=== PATIENT | male | born 1950 | race Caucasian/White ===

== ENCOUNTER 2018-01-15 12:31 | Emergency (ER) | payer BC ==
[2018-01-15] MEDS ORDERED: NA CHLORIDE 0.9% 1,000 ML ONE (13:18)
[2018-01-15 13:28] LABS: Potassium 3.5 mEq/L (3.6-5.0)
[2018-01-15 13:31] LABS: Magnesium 1.8 mg/dL (1.8-2.5)
[2018-01-15 13:38] LABS: CKMB Creatine Kinase MB 9.7 ng/ml (0.3-4.0)
--- NOTE | 2018-01-15 13:38 | RAD REPORT ---
EXAM DESCRIPTION: RAD - Chest Single View - 01/15/2018 1:31 pm CLINICAL HISTORY: Chest pain. COMPARISON: 07/04/2014 FINDINGS: Portable technique limits examination quality. The lungs are grossly clear. The heart is normal in size. Old left posterior rib fractures noted. IMPRESSION: No acute intrathoracic process suspected.
[2018-01-15 13:43] LABS: Absolute Monocytes 0.6 K/uL (0.1-1.3); Absolute Neutrophil 5.3 K/uL (1.8-8.0); Basophils % 0.8 % (0-1.3); Eosinophils % 2.3 % (0-4.4); Hematocrit 41.2 % (39.6-49.0); Lymphocytes % 13.9 % (15.3-44.8); MCH 32.4 pg (27.0-35.0); MCV 93.7 fL (80-100); MPV 8.7 fL (7.6-11.3); Monocytes % 8.8 % (3.3-12.3)
--- NOTE | 2018-01-15 14:09 | RAD REPORT ---
EXAM DESCRIPTION: CT - Head Brain Wo Cont - 01/15/2018 1:50 pm CLINICAL HISTORY: TIA/CVA COMPARISON: None. TECHNIQUE: All CT scans are performed using dose optimization technique as appropriate and may inclu de automated exposure control or mA/KV adjustment according to patient size. FINDINGS: No intracranial hemorrhage, hydrocephalus or extra-axial fluid collection.No areas of brai n edema or evidence of midline shift. The paranasal sinuses and mastoids are clear. The calvarium is intact. IMPRESSION: No acute intracranial abnormality.
[2018-01-15] MEDS ORDERED: POTASSIUM CL SA 10 MEQ TAB PO ONE (15:05)
[2018-01-15] MEDS ORDERED: POTASSIUM 25 MEQ EFFERV TAB ONE (15:06)
--- NOTE | 2018-01-15 17:22 | EDPHYS ---
Physician Documentation [facility] Name: Reinaldo Pickett Age: 67 yrs Sex: Male : 1950 Arrival Date: 01/15/2018 Time: 12:33 Bed 2 Private MD: ED Physician Sonu Dutta HPI: 01/15 12:51 This 67 yrs old Male presents to ER via Ambulatory with complaints of rn Dizziness, chest pain. 12:51 The patient presents with dizziness, feeling faint, generalized weakness. Onset: The rn symptoms/episode began/occurred 2 hour(s) ago. Modifying factors: The symptoms are alleviated by holding head still, lying down, the symptoms are aggravated by changing position. Severity of symptoms: At their worst the symptoms were moderate in the emergency department the symptoms have improved. The patient has not experienced similar symptoms in the past. 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 . Historical: - Allergies: 12:39 No Known Allergies; hb - Home Meds: 12:39 None [Active]; hb - PMHx: 12:39 None; hb - PSHx: 12:39 Cholecystectomy; right knee sx; hb - Immunization history:: Adult Immunizations up to date. - Social history:: Smoking status: Patient/guardian denies using tobacco. - Family history:: not pertinent. - Hospitalizations: : No recent hospitalization is reported. ROS: 12:51 Constitutional: Negative for fever, chills, and weight loss, Eyes: Negative for injury, rn pain, redness, and discharge, Neck: Negative for injury, pain, and swelling, Cardiovascular: Negative for palpitations, and edema, Respiratory: Negative for shortness of breath, cough, wheezing, and pleuritic chest pain, Abdomen/GI: Negative for abdominal pain, nausea, vomiting, diarrhea, and constipation, MS/Extremity: Negative for injury and deformity, Skin: Negative for injury, rash, and discoloration, Neuro: Negative for numbness, tingling, and seizure. Exam: 12:51 Constitutional: This is a well developed, well nourished patient who is awake, alert, rn and in no acute distress. Head/Face: Normocephalic, atraumatic. Eyes: Pupils equal round and reactive to light, extra-ocular motions intact. Lids and lashes normal. Conjunctiva and sclera are non-icteric and not injected. Cornea within normal limits. Periorbital areas with no swelling, redness, or edema. Neck: Trachea midline, no thyromegaly or masses palpated, and no cervical lymphadenopathy. Supple, full range of motion without nuchal rigidity, or vertebral point tenderness. No Meningismus. Cardiovascular: tachycardic, regular, no murmur Respiratory: Lungs have equal breath sounds bilaterally, clear to auscultation and percussion. No rales, rhonchi or wheezes noted. No increased work of breathing, no retractions or nasal flaring. Abdomen/GI: Soft, non-tender, with normal bowel sounds. No distension or tympany. No guarding or rebound. No evidence of tenderness throughout. Skin: Warm, dry with normal turgor. Normal color with no rashes, no lesions, and no evidence of cellulitis. MS/ Extremity: Pulses equal, no cyanosis. Neurovascular intact. Full, normal range of motion. Equal circumference. Neuro: Awake and alert, GCS 15, oriented to person, place, time, and situation. Cranial nerves II-XII grossly intact. Motor strength 5/5 in all extremities. Sensory grossly intact. Cerebellar exam normal. Vital Signs: 12:39 BP 150 / 105; Pulse 114; Resp 20; Temp 97.2; Pulse Ox 97% on R/A; Pain 0/10; hb 15:00 BP 137 / 91; Pulse 97; Resp 16; Pulse Ox 100% ; ph 16:06 BP 142 / 87; Pulse 69; Resp 16; Pulse Ox 99% on R/A; ph 17:00 BP 139 / 78; Pulse 64; Resp 18; Temp 97.8; Pulse Ox 99% on R/A; ph MDM: 12:43 Patient medically screened. rn 17:19 Differential diagnosis: cardiac arrhythmia, hypovolemia, idiopathic dizziness, rn near-syncope, vertigo. Data reviewed: vital signs, nurses notes, lab test result(s), EKG, radiologic studies, CT scan, and as a result, I will discharge patient. Counseling: I had a detailed discussion with the patient and/or guardian regarding: the historical points, exam findings, and any diagnostic results supporting the discharge/admit diagnosis, lab results, radiology results, the need for outpatient follow up, to return to the emergency department if symptoms worsen or persist or if there are any questions or concerns that arise at home. Response to treatment: the patient's symptoms have resolved after treatment, the patient's condition has returned to base line, the patient is now symptom free, patient is well hydrated. and as a result, I will discharge patient. Special discussion: I discussed with the patient/guardian in detail that at this point there is no indication for admission to the hospital. It is understood, however, that if the symptoms persist or worsen the patient needs to return immediately for re-evaluation. ED course: Pt with elevated CKMB, normal troponin, no ischemia on ECG, offered observation, patient chose repeat cardiac markers, which have decreased and trop still negative, normal vitals, symptoms resolved, ambulating without dizziness, will dc home. Most likely over did it and overhead work, mild dehydration, states was "partying" the night before and hasn't really taken much water today. . 01/15 12:50 Order name: Basic Metabolic Panel; Complete Time: 13: rn 01/15 12:50 Order name: BNP; Complete Time: :01/15 12:50 Order name: CBC with Diff; Complete Time: :01/15 12:50 Order name: Ckmb; Complete Time: 13:01/15 12:50 Order name: CPK; Complete Time: 13:01/15 12:50 Order name: Magnesium; Complete Time: 13:01/15 12:50 Order name: CT Head Brain wo Cont; Complete Time: 14:19 rn 01/15 12:50 Order name: Troponin (emerg Dept Use Only); Complete Time: 13:01/15 12:50 Order name: XRAY Chest (1 view); Complete Time: :01/15 15:47 Order name: Troponin (emerg Dept Use Only); Complete Time: 17:18 01/15 15:47 Order name: Ckmb; Complete Time: 17:01/15 15:58 Order name: CK; Complete Time: 17:18 rn 01/15 12:50 Order name: EKG; Complete Time: 12:51 rn 01/15 12:50 Order name: Cardiac monitoring; Complete Time: 12:52 rn 01/15 12:50 Order name: EKG - Nurse/Tech; Complete Time: 12:52 rn 01/15 12:50 Order name: IV Saline Lock; Complete Time: 12:52 rn 01/15 12:50 Order name: Labs collected and sent; Complete Time: 13:09 rn 01/15 12:50 Order name: NPO; Complete Time: 12:52 rn 01/15 12:50 Order name: O2 Per Protocol; Complete Time: 12:52 rn 01/15 12:50 Order name: O2 Sat Monitoring; Complete Time: 12:52 rn Administered Medications: 04:55 Drug: Potassium Chloride 40 mEq Route: PO; ph 13:13 Drug: NS 0.9% 1000 ml Route: IV; Rate: 1000 ml; Site: left forearm; ph Disposition: 01/15/18 17:21 Discharged to Home. Impression: Dizziness and giddiness, Dehydration. - Condition is Stable. - Discharge Instructions: Dehydration, Adult, Dizziness, Hypokalemia. - Medication Reconciliation Form, Thank You Letter, Antibiotic Education, Prescription Opioid Use form. - Follow up: Private Physician; When: As needed; Reason: Recheck today's complaints, Re-evaluation by your physician. - Problem is new. - Symptoms have improved. Signatures: Dispatcher [employer] EDSonu Ramos MD MD rn Hall, Patricia, RN RN ph Baxter, Heather, RN RN
--- NOTE | 2018-01-15 17:22 | ER ---
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 Transition of care: patient was not received from another setting of care. Onset of symptoms was January 15, 2018 at 10:00. Care prior to arrival: None. 12:35 Method Of Arrival: Ambulatory 12:35 Acuity: ADRIENNE 3 hb Historical: - Allergies: 12:39 No Known Allergies; hb - Home Meds: 12:39 None [Active]; hb - PMHx: 12:39 None; hb - PSHx: 12:39 Cholecystectomy; right knee sx; hb - Immunization history:: Adult Immunizations up to date. - Social history:: Smoking status: Patient/guardian denies using tobacco. - Family history:: not pertinent. - Hospitalizations: : No recent hospitalization is reported. Screenin:54 Abuse screen: Denies threats or abuse. Denies injuries from another. Nutritional ph screening: No deficits noted. Tuberculosis screening: No symptoms or risk factors identified. Fall Risk None identified. Assessment: 13:10 General: Appears in no apparent distress. comfortable, Behavior is calm, cooperative, ph appropriate for age, Denies fever, feeling ill. Pain: Complains of pain in right arm Pain radiates to right hand Quality of pain is described as crampy, tingling. Neuro: Level of Consciousness is awake, alert, obeys commands, Oriented to person, place, time, situation. Cardiovascular: Reports fatigue, lightheadedness, Denies chest pain, shortness of breath, syncope, Capillary refill < 3 seconds Patient's skin is warm and dry. Respiratory: Airway is patent Respiratory effort is even, unlabored. GI: No signs and/or symptoms were reported involving the gastrointestinal system. Derm: Skin is intact, Skin is pink, warm \\T\\ dry. Musculoskeletal: Circulation, motion, and sensation intact. Range of motion: intact in all extremities. 14:30 Reassessment: Patient appears in no apparent distress at this time. Patient and/or ph family updated on plan of care and expected duration. Pain level reassessed. Patient is alert, oriented x 3, equal unlabored respirations, skin warm/dry/pink. at bedside, awaiting CT and lab results. 16:06 Reassessment: Patient appears in no apparent distress at this time. Patient and/or ph family updated on plan of care and expected duration. Pain level reassessed. Patient is alert, oriented x 3, equal unlabored respirations, skin warm/dry/pink. Pt resting quietly, awaiting results of repeat cardiac enzymes Patient denies pain at this time. Patient states symptoms have improved. 17:25 Reassessment: Patient appears in no apparent distress at this time. No changes from ph previously documented assessment. Patient and/or family updated on plan of care and expected duration. Pain level reassessed. Patient is alert, oriented x 3, equal unlabored respirations, skin warm/dry/pink. Patient denies pain at this time. Patient states feeling better. Vital Signs: 12:39 BP 150 / 105; Pulse 114; Resp 20; Temp 97.2; Pulse Ox 97% on R/A; Pain 0/10; hb 15:00 BP 137 / 91; Pulse 97; Resp 16; Pulse Ox 100% ; ph 16:06 BP 142 / 87; Pulse 69; Resp 16; Pulse Ox 99% on R/A; ph 17:00 BP 139 / 78; Pulse 64; Resp 18; Temp 97.8; Pulse Ox 99% on R/A; ph ED Course: 12:33 Patient arrived in ED. as 12:39 Triage completed. hb 12:39 Arm band placed on left wrist. hb 12:43 Sonu Dutta MD is Attending Physician. rn 12:54 Patient has correct armband on for positive identification. Placed in gown. Bed in low ph position. Call light in reach. Side rails up X 1. tax services intern on. Pulse ox on. NIBP on. Warm blanket given. 13:00 Initial lab(s) drawn, by me, sent to lab. Inserted saline lock: 20 gauge in left ph forearm, using aseptic technique. Blood collected. 13:09 Jaylin Rubio, RN is Primary Nurse. ph 13:12 X-ray completed. Portable x-ray completed in exam room. Patient tolerated procedure kp1 well. 13:31 XRAY Chest (1 view) In Process Unspecified. EDMS 13:50 CT Head Brain wo Cont In Process Unspecified. EDMS 16:05 No provider procedures requiring assistance completed. ph 17:47 IV discontinued, intact, bleeding controlled, No redness/swelling at site. Pressure ph dressing applied. Administered Medications: 04:55 Drug: Potassium Chloride 40 mEq Route: PO; ph 13:13 Drug: NS 0.9% 1000 ml Route: IV; Rate: 1000 ml; Site: left forearm; ph Outcome: 17:21 Discharge ordered by MD. rn 17:47 Patient left the ED. ph 17:47 Discharged to home ambulatory. ph 17:47 Condition: good 17:47 Discharge instructions given to patient, Instructed on discharge instructions, follow up and referral plans. Demonstrated understanding of instructions, follow-up care. Signatures: Dispatcher [employer] Kasandra Daly Roman, MD MD rn Hall, Patricia, RN RN ph Baxter, Heather, RN RN Therese Cespedes kp1 Corrections: (The following items were deleted from the chart) 12:39 12:35 Onset of symptoms was January 15, 2018 at 11:00 hb
--- NOTE | 2018-01-16 10:24 | EKG ---
Test Date: 2018-01-15 Test Time: 12:48:56 Director Of Student Financial Services: MEASUREMENT RESULTS: Intervals: Rate: 94 DE: 212 QRSD: 80 QT: 352 QTc: 440 [place]: P: 56 DE: 212 QRS: 35 T: 52 INTERPRETIVE STATEMENTS: Sinus rhythm with 1st degree AV block Otherwise normal ECG Compared to ECG 07/04/2014 08:12:18 Myocardial infarct finding no longer present Electronically Signed On 01-16-18 10:23:26 CDT by Moshe Shelley
== END 2018-01-15 17:47 | disposition home or self-care (01) ==
LOC: ER 12:31
DX: E86.0 Dehydration (principal)
CPT/HCPCS: 36415; 70450; 71045; 80048; 82550; 82553; 83735; 83880; 84484; 85025; 93005; 99284; J7030

== ENCOUNTER 2018-03-26 10:45 | Emergency (ER) | payer BC ==
[2018-03-26] MEDS ORDERED: KETOROLAC 30 MG/ML INJ ONE (11:41)
[2018-03-26 11:58] LABS: Urine Bacteria <20 /HPF (NONE SEEN); Urine Culture Reflex Order REFLEXED; Urine Triple Phosphate Crystal FEW (NONE SEEN)
[2018-03-26 11:59] LABS: Urine Blood 1+ (NEG); Urine Glucose NEGATIVE (NEG); Urine Protein 1+ (NEG); Urine Specific Gravity 1.025 (1.005-1.030); Urine pH 6.5 (5.0-7.0)
[2018-03-26 12:17] LABS: Absolute Monocytes 0.7 K/uL (0.1-1.3); Basophils % 0.3 % (0-1.3); Hematocrit 41.8 % (39.6-49.0); Lymphocytes % 9.1 % (15.3-44.8); MCH 32.6 pg (27.0-35.0); MCV 92.6 fL (80-100); MPV 8.5 fL (7.6-11.3); Monocytes % 6.3 % (3.3-12.3); RBC Red Blood Cell Count 4.52 M/uL (4.33-5.43)
--- NOTE | 2018-03-26 12:17 | RAD REPORT ---
EXAM DESCRIPTION: CT - Stone Protocol - 03/26/2018 11:42 am CLINICAL HISTORY: Abdominal pain. Lower abdominal pain. Urinary frequency Abdominal pain. Left flank pain since with a COMPARISON: None. TECHNIQUE: Computed axial tomography of the abdomen pelvis was obtained without oral or IV contrast. Lack of IV and oral contrast limits evaluation of solid organs, bowel, and vessels. Coronal reformat carissa images were obtained and reviewed. All CT scans are performed using dose optimization technique as appropriate and may include automated exposure control or mA/KV adjustment according to patient size. Bilateral renal calculi are present. The calculi measure from 2-4 millimeters. Parapelvic renal cysts are present. Mild left hydronephrosis with perirenal stranding is present. A 5 millimeter calculus H [place] unit 1163 is present within the proximal left ureter. . The liver, spleen, pancreas and adrenals appear grossly normal There is no evidence of diverticulitis. The appendix appears normal. A small umbilical hernia is present. The gallbladder has been removed FINDINGS: Bilateral renal calculi are present. The calculi measure from 2-4 millimeters. Parapelvic renal cysts are present. Mild left hydronephrosis with perirenal stranding is present. A 5 millimeter calculus [place] unit 1163 is present within the proximal left ureter. . The liver, spleen, pancreas and adrenals appear grossly normal There is no evidence of diverticulitis. The appendix appears normal. A small umbilical hernia is present. The gallbladder has been removed IMPRESSION: 5 millimeter left ureteral calculus resulting in mild left hydronephrosis
[2018-03-26 12:25] LABS: Potassium 3.9 mEq/L (3.6-5.0)
[2018-03-26 12:31] LABS: Albumin 4.3 g/dL (3.2-5.5); Bilirubin Direct 0.1 mg/dL (0-0.2); Bilirubin Total 0.7 mg/dL (0.3-1.2); Protein, Total 7.2 g/dL (6.0-8.3)
--- NOTE | 2018-03-26 12:40 | EDPHYS ---
Physician Documentation [facility] Name: Reinaldo Pickett Age: 67 yrs Sex: Male : 1950 Arrival Date: 03/26/2018 Time: 10:48 Bed 8 Private MD: None, None ED Physician Otto Loyola HPI: 03/26 13:34 This 67 yrs old Male presents to ER via Ambulatory with complaints of gs Possible Kidney Stone. 13:34 The patient complains of pain in the left low back and left mid back. The pain gs radiates. Onset: The symptoms/episode began/occurred acutely, this morning. Modifying factors: The symptoms are alleviated by nothing. the symptoms are aggravated by nothing. Associated signs and symptoms: Pertinent positives: nausea. Severity of pain: At its worst the pain was moderate in the emergency department the pain is unchanged. The patient has experienced similar episodes in the past, a few times, today's symptoms are similar. The patient has not recently seen a physician. Historical: - Allergies: 11:10 No Known Allergies; sv - Home Meds: 11:10 None [Active]; sv - PMHx: 11:10 Kidney stones; sv - PSHx: 11:10 Cholecystectomy; right knee sx; sv - Immunization history:: Adult Immunizations up to date. - Social history:: Smoking status: Patient/guardian denies using tobacco. - Ebola Screening: : No symptoms or risks identified at this time. ROS: 13:34 All other systems are negative. gs Exam: 13:34 Head/Face: Normocephalic, atraumatic. Eyes: Pupils equal round and reactive to light, gs extra-ocular motions intact. Lids and lashes normal. Conjunctiva and sclera are non-icteric and not injected. Cornea within normal limits. Periorbital areas with no swelling, redness, or edema. ENT: Nares patent. No nasal discharge, no septal abnormalities noted. Tympanic membranes are normal and external auditory canals are clear. Oropharynx with no redness, swelling, or masses, exudates, or evidence of obstruction, uvula midline. Mucous membranes moist. Neck: Trachea midline, no thyromegaly or masses palpated, and no cervical lymphadenopathy. Supple, full range of motion without nuchal rigidity, or vertebral point tenderness. No Meningismus. Chest/axilla: Normal chest wall appearance and motion. Nontender with no deformity. No lesions are appreciated. Cardiovascular: Regular rate and rhythm with a normal S1 and S2. No gallops, murmurs, or rubs. Normal PMI, no JVD. No pulse deficits. Respiratory: Lungs have equal breath sounds bilaterally, clear to auscultation and percussion. No rales, rhonchi or wheezes noted. No increased work of breathing, no retractions or nasal flaring. Abdomen/GI: Soft, non-tender, with normal bowel sounds. No distension or tympany. No guarding or rebound. No evidence of tenderness throughout. Male : Normal genitalia with no discharge or lesions. Skin: Warm, dry with normal turgor. Normal color with no rashes, no lesions, and no evidence of cellulitis. MS/ Extremity: Pulses equal, no cyanosis. Neurovascular intact. Full, normal range of motion. Neuro: Awake and alert, GCS 15, oriented to person, place, time, and situation. Cranial nerves II-XII grossly intact. Motor strength 5/5 in all extremities. Sensory grossly intact. Cerebellar exam normal. Normal gait. 13:34 Constitutional: The patient appears alert, awake. 13:34 Back: CVA tenderness, that is moderate, is noted on the left. Vital Signs: 11:10 BP 136 / 88; Pulse 75; Resp 20; Pulse Ox 99% on R/A; Weight 102.06 kg; Height 6 ft. 1 sv in. (185.42 cm); Pain 10/10; 13:00 BP 128 / 77; Pulse 76; Resp 18; Pulse Ox 100% on R/A; Pain 3/10; sg 11:10 Body Mass Index 29.68 (102.06 kg, 185.42 cm) sv MDM: 11:25 Patient medically screened. gs 13:34 Differential diagnosis: nephrolithiasis, pyelonephritis, UTI. Data reviewed: vital gs signs, nurses notes. Response to treatment: the patient's symptoms have markedly improved after treatment, and as a result, I will discharge patient. 03/26 11:25 Order name: Urine Dipstick--Ancillary (enter results); Complete Time: 12:37 em1 03/26 11:27 Order name: Urine Microscopic Only; Complete Time: 12:37 gs 03/26 11:27 Order name: Basic Metabolic Panel; Complete Time: 12:37 03/26 11:27 Order name: CBC with Diff; Complete Time: 12:37 03/26 11:27 Order name: Hepatic Function; Complete Time: 12: 03/26 11:27 Order name: Lipase; Complete Time: 12: 03/26 11:25 Order name: Urine Dipstick-Ancillary (obtain specimen); Complete Time: 11:25 1 03/26 11:27 Order name: IV Saline Lock; Complete Time: 12: 03/26 11:27 Order name: Labs collected and sent; Complete Time: 12: 03/26 11:27 Order name: CT Stone Protocol; Complete Time: 12: 03/26 12:00 Order name: Urine Culture EDMS Administered Medications: 12:01 Drug: TORadol 15 mg Route: IVP; Site: left antecubital; sg 13:00 Follow up: Response: No adverse reaction; Pain is decreased sg Disposition: 03/26/18 12:39 Discharged to Home. Impression: Hydronephrosis with renal and ureteral calculous obstruction. - Condition is Stable. - Discharge Instructions: Hydronephrosis. - Prescriptions for Tylenol- Codeine #4 300-60 mg Oral Tablet - take 1 tablet by ORAL route every 6 hours As needed; 12 tablet. - Medication Reconciliation Form, Thank You Letter, Antibiotic Education, Prescription Opioid Use form. - Follow up: Randi Casarez MD; When: 2 - 3 days; Reason: Re-evaluation by your physician. Signatures: Dispatcher [employer] EDDC Seda Odom RN RN Ron Cedillo RN RN Marques Rasheed [facility] Otto Loyola MD MD Corrections: (The following items were deleted from the chart) 13:11 12:39 03/26/2018 12:39 Discharged to Home. Impression: Hydronephrosis with renal and sg ureteral calculous obstruction. Condition is Stable. Forms are Medication Reconciliation Form, Thank You Letter, Antibiotic Education, Prescription Opioid Use. Follow up: Randi Casarez; When: 2 - 3 days; Reason: Re-evaluation by your physician.
--- NOTE | 2018-03-26 12:40 | ER ---
Nurse's Notes [facility] Name: Reinaldo Pickett Age: 67 yrs Sex: Male : 1950 Arrival Date: 03/26/2018 Time: 10:48 Bed 8 Private MD: None, None Diagnosis: Hydronephrosis with renal and ureteral calculous obstruction Presentation: 03/26 11:09 Presenting complaint: Patient states: left flank pain started , has hx of sv kidkey stones. Transition of care: patient was not received from another setting of care. Onset of symptoms was March 24, 2018. Care prior to arrival: None. 11:09 Method Of Arrival: Ambulatory sv 11:09 Acuity: ADRIENNE 3 sv 12:15 Risk Assessment: Do you want to hurt yourself or someone else? Patient reports no sg desire to harm self or others. Initial Sepsis Screen: Does the patient meet any 2 criteria? No. Patient's initial sepsis screen is negative. Does the patient have a suspected source of infection? No. Patient's initial sepsis screen is negative. Historical: - Allergies: 11:10 No Known Allergies; sv - Home Meds: 11:10 None [Active]; sv - PMHx: 11:10 Kidney stones; sv - PSHx: 11:10 Cholecystectomy; right knee sx; sv - Immunization history:: Adult Immunizations up to date. - Social history:: Smoking status: Patient/guardian denies using tobacco. - Ebola Screening: : No symptoms or risks identified at this time. Screenin:00 Abuse screen: Denies threats or abuse. Denies injuries from another. Nutritional sg screening: No deficits noted. Tuberculosis screening: No symptoms or risk factors identified. Never had TB. Fall Risk None identified. Assessment: 11:45 General: Appears in no apparent distress. comfortable, well groomed, well developed, sg well nourished, Behavior is calm, cooperative, appropriate for age. Pain: Complains of pain in left mid back and left low back Pain does not radiate. Neuro: No deficits noted. Cardiovascular: Heart tones S1 S2 present Capillary refill is brisk in bilateral fingers Patient's skin is warm and dry. Chest pain is denied. Respiratory: Airway is patent Respiratory effort is even, unlabored, Respiratory pattern is regular, symmetrical. GI: Bowel sounds present X 4 quads. Abd is soft and non tender X 4 quads. : No signs and/or symptoms were reported regarding the genitourinary system. EENT: No signs and/or symptoms were reported regarding the EENT system. Derm: Skin is pink, warm \T\ dry. Musculoskeletal: No signs and/or symptoms reported regarding the musculoskeletal system. 12:10 Reassessment: Patient appears in no apparent distress at this time. Patient and/or sg family updated on plan of care and expected duration. Pain level reassessed. Patient is alert, oriented x 3, equal unlabored respirations, skin warm/dry/pink. Patient states feeling better. Vital Signs: 11:10 BP 136 / 88; Pulse 75; Resp 20; Pulse Ox 99% on R/A; Weight 102.06 kg; Height 6 ft. 1 sv in. (185.42 cm); Pain 10/10; 13:00 BP 128 / 77; Pulse 76; Resp 18; Pulse Ox 100% on R/A; Pain 3/10; sg 11:10 Body Mass Index 29.68 (102.06 kg, 185.42 cm) sv ED Course: 10:48 Patient arrived in ED. sb2 10:49 None, None is Private Physician. sb2 11:10 Triage completed. sv 11:11 Arm band placed on right wrist. sv 11:16 Otto Loyola MD is Attending Physician. gs 11:19 Ron Cedillo, NIKOLAY is Primary Nurse. sg 11:[address] sw 11:43 CT Stone Protocol In Process Unspecified. EDMS 11:55 Initial lab(s) drawn, by me, sent to lab. Inserted saline lock: 20 gauge in left dh3 antecubital area, using aseptic technique. Blood collected. 12:38 Randi Casarez MD is Referral Physician. gs 13:00 Patient has correct armband on for positive identification. Bed in low position. Call sg light in reach. Side rails up X2. surveillance system monitor on. Pulse ox on. NIBP on. Warm blanket given. Head of bed elevated. 13:00 No provider procedures requiring assistance completed. IV discontinued, intact, sg bleeding controlled, No redness/swelling at site. Pressure dressing applied. Administered Medications: 12:01 Drug: TORadol 15 mg Route: IVP; Site: left antecubital; sg 13:00 Follow up: Response: No adverse reaction; Pain is decreased Outcome: 12:39 Discharge ordered by . 13:00 Discharged to home ambulatory, with family. 13:00 Condition: good 13:00 Discharge instructions given to patient, Instructed on discharge instructions, follow up and referral plans. medication usage, safety practices, Demonstrated understanding of instructions, follow-up care, medications, Prescriptions given X 2 prescriptions were written on one prescription paper, (Keflex) along w/tylenol 13:11 Patient left the ED. sg Signatures: Dispatcher [employer] EDSeda Allred RN RN sv Gay, Steven, RN RN sg Warren, Shannon sw Herrera, Kym 3 Otto Loyola MD MD gs Billeau, Sheri sb2
== END 2018-03-26 13:11 | disposition home or self-care (01) ==
LOC: ER 10:45
DX: N13.2 Hydronephrosis with renal and ureteral calculous obstruction (principal); Z87.442 Personal history of urinary calculi
CPT/HCPCS: 36415; 74176; 76377; 80048; 80076; 81003; 81015; 83690; 85025; 87086; 87088; 96374; 99285

== ENCOUNTER 2018-03-29 10:20 | Day surgery (SDC) | payer BC ==
[2018-03-29 10:05] LABS: Absolute Lymphocytes (CBC) 1.2 K/uL (0.7-4.9); Absolute Monocytes 0.8 K/uL (0.1-1.3); Absolute Neutrophil 5.3 K/uL (1.8-8.0); Basophils % 0.3 % (0-1.3); Eosinophils % 4.2 % (0-4.4); Hematocrit 39.4 % (39.6-49.0); Lymphocytes % 16.2 % (15.3-44.8); MCH 33.3 pg (27.0-35.0); MCV 91.2 fL (80-100); MPV 8.5 fL (7.6-11.3); RBC Red Blood Cell Count 4.32 M/uL (4.33-5.43)
[2018-03-29 10:08] LABS: Urine Appearance CLEAR; Urine Bilirubin NEGATIVE (NEG); Urine Blood NEGATIVE (NEG); Urine Color YELLOW; Urine Glucose NEGATIVE (NEG); Urine Protein TRACE (NEG); Urine Specific Gravity 1.025 (1.005-1.030); Urine pH 5.5 (5.0-7.0)
[2018-03-29 10:09] LABS: Protime INR 1.08
[2018-03-29 10:12] LABS: Urine Microscopic Reflex NO UMIC
[2018-03-29 10:22] LABS: Bicarbonate 29 mEq/L (21-31); Glucose Level 128 mg/dL (65-120); Potassium 4.4 mEq/L (3.6-5.0); Sodium Level 141 mEq/L (135-145)
--- NOTE | 2018-03-29 10:24 | RAD REPORT ---
EXAM DESCRIPTION: Jerzy Barraza (2 Views)03/29/2018 10:17 am CLINICAL HISTORY: Abdominal pain/preop COMPARISON: January 2018 FINDINGS: The lungs appear clear of acute infiltrate. The heart is normal size. Old rib fractures are present IMPRESSION: No acute abnormalities displayed
[2018-03-29 10:26] LABS: BUN Blood Urea Nitrogen 18 mg/dL (6-20); Phosphorus 2.9 mg/dL (2.5-4.3); Uric Acid 4.2 mg/dL (4.8-8.7)
--- NOTE | 2018-03-29 10:30 | RAD REPORT ---
EXAM DESCRIPTION: RAD - Abdomen 1 View (KUB) - 03/29/2018 10:17 am CLINICAL HISTORY: Abdomen pain. ICD N 20.0 FINDINGS: The bowel gas pattern is unremarkable. Patient's previously described left ureteral calculus is not clearly visualized on this examination.
[2018-03-29] MEDS ORDERED: GENTAMICIN 100 MG/100 ML BAG 100 MG/100 ML BAG IV ONE (10:34)
[2018-03-29] MEDS ORDERED: Ringers Lactate 0 ML IV ONE (10:34)
[2018-03-29] MEDS ORDERED: Ringers Lactate 1,000 ML IV ONE (10:36)
--- NOTE | 2018-03-29 11:34 | RAD REPORT ---
EXAM DESCRIPTION: CT - Abdomen Pelvis Wo Contrast - 03/29/2018 11:18 am CLINICAL HISTORY: Abdominal pain ICD N 20.0 COMPARISON: March 26, 2018 TECHNIQUE: Computed axial tomography of the abdomen and pelvis was obtained. IV and oral contrast we re not requested. All CT scans are performed using dose optimization technique as appropriate and may include automated exposure control or mA/KV adjustment according to patient size. FINDINGS: The evaluation of solid organs, vessels and bowel is limited secondary to the lack of con trast administration. A 5 millimeter calculus is present within the proximal left ureter unchanged in position from the stefani or exam. It lies just above the level of the iliac crest. Mild left hydronephrosis persists. No other change has occurred since the prior examination. IMPRESSION: 5 millimeter calculus in the proximal left ureter unchanged in position from the prior e xam. Mild left hydronephrosis is seen
[2018-03-29] MEDS ORDERED: MIDAZOLAM HCL 2 MG/2 ML INJ ONE (12:39)
[2018-03-29] MEDS ORDERED: PROPOFOL 200 MG/20 ML VIAL IV ONE (12:44)
[2018-03-29] MEDS ORDERED: FENTANYL CITR 100 MCG/2 ML ONE (12:44)
[2018-03-29] MEDS ORDERED: LIDOCAINE 1% MPF 5 ML VIAL ONE (12:44)
[2018-03-29] MEDS ORDERED: NS 0.9% VIAL 10 ML ONE (13:13)
[2018-03-29] MEDS ORDERED: EPHEDRINE SULF 50 MG/5 ML SYR ONE (13:13)
[2018-03-29] MEDS ORDERED: Mastisol Adhesive Liq ONE (13:25)
[2018-03-29] MEDS ORDERED: KETOROLAC 30 MG/ML INJ ONE (14:21)
--- NOTE | 2018-03-30 10:44 | EKG ---
Test Date: 2018-03-29 Test Time: 09:46:03 Financing Analyst: YADY MEASUREMENT RESULTS: Intervals: Rate: 68 [place]: 214 QRSD: 102 QT: 396 QTc: 421 Stanley: P: 47 KY: 214 QRS: 19 T: 36 INTERPRETIVE STATEMENTS: Sinus rhythm with 1st degree AV block Otherwise normal ECG Compared to ECG 01/15/2018 12:48:56 No significant changes Electronically Signed On 03-30-18 10:43:00 CDT by Moshe Shelley
== END 2018-03-29 15:50 | disposition home or self-care (01) ==
LOC: OR 10:20
PROVIDERS: ATTEND Urology
PROC: 0TF78ZZ Fragmentation in Left Ureter, Via Natural or Artificial Opening Endoscopic (ICD-10-PCS; 2018-03-29)
PROC: BT1FYZZ Fluoroscopy of Left Kidney, Ureter and Bladder using Other Contrast (ICD-10-PCS; 2018-03-29)
PROC: 0TF4XZZ Fragmentation in Left Kidney Pelvis, External Approach (ICD-10-PCS; principal; 2018-03-29 13:30)
DX: N20.0 Calculus of kidney (principal); R10.32 Left lower quadrant pain; Q62.39 Other obstructive defects of renal pelvis and ureter
CPT/HCPCS: 36415; 71046; 74018; 74176; 80048; 81003; 84100; 84550; 85025; 85610; 85730; 87086; 87088; 93005; J1580; J2250; J3010; Q9967

== ENCOUNTER 2018-04-12 09:01 | Day surgery (SDC) | payer BC ==
[2018-04-07 14:56] LABS: Urine Appearance CLOUDY; Urine Bilirubin NEGATIVE (NEG); Urine Blood 3+ (NEG); Urine Color YELLOW; Urine Glucose NEGATIVE (NEG); Urine Protein 2+ (NEG); Urine Specific Gravity 1.015 (1.005-1.030); Urine Urobilinogen 0.2 mg/dL (0.2-1.0)
[2018-04-07 14:59] LABS: Urine Microscopic Reflex ORDER UMIC
[2018-04-07 15:00] LABS: Absolute Lymphocytes (CBC) 1.6 K/uL (0.7-4.9); Absolute Monocytes 0.6 K/uL (0.1-1.3); Absolute Neutrophil 5.7 K/uL (1.8-8.0); Basophils % 0.6 % (0-1.3); Eosinophils % 5.4 % (0-4.4); Lymphocytes % 19.2 % (15.3-44.8); MCH 31.8 pg (27.0-35.0); MCV 93.5 fL (80-100); MPV 8.3 fL (7.6-11.3); Monocytes % 6.8 % (3.3-12.3); RBC Red Blood Cell Count 4.27 M/uL (4.33-5.43)
[2018-04-07 15:04] LABS: Protime INR 1.05
[2018-04-07 15:15] LABS: Potassium 3.9 mmol/L (3.5-5.1)
[2018-04-07 15:16] LABS: Phosphorus 3.1 mg/dL (2.5-4.9)
[2018-04-07 15:24] LABS: Urine Bacteria <20 /HPF (NONE SEEN); Urine Culture Reflex Order NOT NEEDED; Urine Mucus 1+ /HPF (NONE SEEN); Urine RBC >50 /HPF (NONE SEEN)
[2018-04-12] MEDS ORDERED: GENTAMICIN 100 MG/100 ML BAG 100 MG/100 ML BAG IV ONE (09:14)
[2018-04-12] MEDS ORDERED: Ringers Lactate 1,000 ML IV ONE (09:14)
--- NOTE | 2018-04-12 09:48 | RAD REPORT ---
EXAM DESCRIPTION: RAD - Abdomen 1 View (KUB) - 04/12/2018 9:25 am CLINICAL HISTORY: ICD N 20.0 FINDINGS: The bowel gas pattern is unremarkable. A left ureteral stent is in place. A a 4 millimeter calcification lies lateral to the ureteral stent at the L3 level
[2018-04-12] MEDS ORDERED: PROPOFOL 200 MG/20 ML VIAL IV ONE (09:53)
[2018-04-12] MEDS ORDERED: MIDAZOLAM HCL 2 MG/2 ML INJ ONE (09:53)
[2018-04-12] MEDS ORDERED: FENTANYL CITR 100 MCG/2 ML ONE (09:54)
[2018-04-12] MEDS ORDERED: LIDOCAINE 2% MPF 5 ML VIAL ONE (09:54)
[2018-04-12] MEDS ORDERED: ONDANSETRON HCL 40 MG/20 ML VIAL ONE (09:57)
[2018-04-12] MEDS: MEPERIDINE HCL 50 MG/ML AMP ONE ×2 (11:37→11:43)
== END 2018-04-12 13:26 | disposition home or self-care (01) ==
LOC: OR 09:01
PROVIDERS: ATTEND Urology
PROC: 0TF4XZZ Fragmentation in Left Kidney Pelvis, External Approach (ICD-10-PCS; principal; 2018-04-12 10:00)
DX: N20.0 Calculus of kidney (principal); Q62.39 Other obstructive defects of renal pelvis and ureter; Z90.49 Acquired absence of other specified parts of digestive tract
CPT/HCPCS: 36415; 50590; 74018; 80048; 81003; 81015; 84100; 84550; 85025; 85610; 85730; 87086; 87088; J1580; J2175; J2250; J2405; J3010

== ENCOUNTER 2019-11-29 16:08 | Emergency (ER) | payer BC ==
--- NOTE | 2019-11-29 16:24 | ER ---
Nurse's Notes [facility] Name: Reinaldo Pickett Age: 69 yrs Sex: Male : 1950 Arrival Date: 11/29/2019 Time: 16:11 Bed 5 Private MD: Diagnosis: Insect bite (nonvenomous) of right upper arm;Cellulitis of right upper limb Presentation: 11/29 16:20 Presenting complaint: Patient states: insect bite/sting to inside of right upper arm X iw 48 hours ago, increasing redness and swelling, hot to touch, denies fever. Transition of care: patient was not received from another setting of care. Onset of symptoms was November 27, 2019. Risk Assessment: Do you want to hurt yourself or someone else? Patient reports no desire to harm self or others. Initial Sepsis Screen: Does the patient meet any 2 criteria? No. Patient's initial sepsis screen is negative. Does the patient have a suspected source of infection? No. Patient's initial sepsis screen is negative. Care prior to arrival: None. 16:20 Method Of Arrival: Ambulatory iw 16:20 Acuity: ADRIENNE 4 iw Triage Assessment: 16:50 Bite description: bite sustained to right bicep by unknown insect, animal information: ph vaccination(s) is unknown. Historical: - Allergies: 16:23 No Known Allergies; iw - Home Meds: 16:23 None [Active]; iw - PMHx: 16:23 Kidney stones; iw - PSHx: 16:23 Cholecystectomy; right knee sx; iw - Immunization history:: Last tetanus immunization: unknown. - Coronavirus screen:: The patient has NOT traveled to [place] in the past 14 days. Proceed with normal triage process as indicated. - Social history:: Smoking status: Patient denies any tobacco usage or history of. - Ebola Screening: : Patient negative for fever greater than or equal to 101.5 degrees Fahrenheit, and additional compatible Ebola Virus Disease symptoms Patient denies exposure to infectious person Patient denies travel to an Ebola-affected area in the 21 days before illness onset No symptoms or risks identified at this time. Screenin:49 Abuse screen: Denies threats or abuse. Denies injuries from another. Nutritional ph screening: No deficits noted. Tuberculosis screening: No symptoms or risk factors identified. Fall Risk None identified. Assessment: 16:46 General: Appears in no apparent distress. comfortable, slender, well groomed, Behavior ph is calm, cooperative, appropriate for age, Denies fever, feeling ill. Pain: Complains of pain in right bicep. Neuro: Level of Consciousness is awake, alert, obeys commands, Oriented to person, place, time, situation. Cardiovascular: Capillary refill < 3 seconds in bilateral fingers Patient's skin is warm and dry. Respiratory: Airway is patent Respiratory effort is even, unlabored, Respiratory pattern is regular, symmetrical. Derm: Skin is intact, Skin is pink, warm \T\ dry. redness and swelling noted to R inner bicep. Musculoskeletal: Circulation, motion, and sensation intact. Range of motion: intact in all extremities. Vital Signs: 16:23 BP 164 / 103; Pulse 72; Resp 16; Temp 98.8; Pulse Ox 98% on R/A; Weight 102.06 kg; iw Height 6 ft. 1 in. (185.42 cm); 16:23 Body Mass Index 29.68 (102.06 kg, 185.42 cm) iw ED Course: 16:11 Patient arrived in ED. mr 16:12 [facility]C [facility] snw 16:12 Sonu Dutta MD is Attending Physician. snw 16:21 Triage completed. iw 16:23 Arm band placed on. iw 16:26 Jaylin Rubio, RN is Primary Nurse. ph 16:49 Patient has correct armband on for positive identification. Bed in low position. Call ph light in reach. Side rails up X 1. Pulse ox on. NIBP on. Door closed. Noise minimized. 16:50 No provider procedures requiring assistance completed. IV discontinued, intact, ph bleeding controlled, No redness/swelling at site. Pressure dressing applied. Administered Medications: 16:40 Drug: Clindamycin 300 mg Route: PO; ph 16:45 Follow up: Response: No adverse reaction ph 16:40 Drug: ZyrTEC - Cetirizine 10 mg Route: PO; ph 16:45 Follow up: Response: No adverse reaction ph 16:40 Drug: Tetanus-Diphtheria Toxoid Adult 0.5 ml {Games Dealer: [employer]. Exp: ph 10/26/2021. Lot #: [id number]. } Route: IM; Site: right deltoid; 16:45 Follow up: Response: No adverse reaction ph Outcome: 16:23 Discharge ordered by MD. bangura 16:51 Discharged to home ambulatory. ph 16:51 Condition: good 16:51 Discharge instructions given to patient, Instructed on discharge instructions, follow up and referral plans. medication usage, Demonstrated understanding of instructions, follow-up care, medications, Prescriptions given X 2. 16:52 Patient left the ED. ph Signatures: Lenore Guerrier, MALISSA-C CLINICAL DERMATOLOGIST-Fely Sheikh Irene, RN RN iw Hall, Patricia, RN RN ph Corrections: (The following items were deleted from the chart) 16:44 06:40 Tetanus-Diphtheria Toxoid Adult 0.5 ml IM in right deltoid Games Dealer: [facility] [employer] Lot: [id number] Exp: 10/26/2021 ph
--- NOTE | 2019-11-29 16:24 | EDPHYS ---
Physician Documentation [facility] Name: Reinaldo Pickett Age: 69 yrs Sex: Male : 1950 Arrival Date: 11/29/2019 Time: 16:11 Bed 5 Private MD: ED Physician Sonu Dutta HPI: 11/29 16:38 This 69 yrs old Male presents to ER via Ambulatory with complaints of Insect snw Bite. 16:38 Onset: The symptoms/episode began/occurred 2 day(s) ago, and became persistent. The snw patient has not experienced similar symptoms in the past. The patient has not recently seen a physician. no fever, no airway compromise. Historical: - Allergies: 16:23 No Known Allergies; iw - Home Meds: 16:23 None [Active]; iw - PMHx: 16:23 Kidney stones; iw - PSHx: 16:23 Cholecystectomy; right knee sx; iw - Immunization history:: Last tetanus immunization: unknown. - Coronavirus screen:: The patient has NOT traveled to [place] in the past 14 days. Proceed with normal triage process as indicated. - Social history:: Smoking status: Patient denies any tobacco usage or history of. - Ebola Screening: : Patient negative for fever greater than or equal to 101.5 degrees Fahrenheit, and additional compatible Ebola Virus Disease symptoms Patient denies exposure to infectious person Patient denies travel to an Ebola-affected area in the 21 days before illness onset No symptoms or risks identified at this time. ROS: 16:37 Constitutional: Negative for fever, chills, and weight loss, Eyes: Negative for injury, snw pain, redness, and discharge, ENT: Negative for injury, pain, and discharge, Neck: Negative for injury, pain, and swelling, Cardiovascular: Negative for chest pain, palpitations, and edema, Respiratory: Negative for shortness of breath, cough, wheezing, and pleuritic chest pain, Abdomen/GI: Negative for abdominal pain, nausea, vomiting, diarrhea, and constipation, Back: Negative for injury and pain, : Negative for injury, bleeding, discharge, and swelling, MS/Extremity: Negative for injury and deformity, Neuro: Negative for headache, weakness, numbness, tingling, and seizure, Psych: Negative for depression, anxiety, suicide ideation, homicidal ideation, and hallucinations. 16:37 Skin: Positive for erythema, swelling, of the right bicep, warmth. Exam: 16:36 Constitutional: This is a well developed, well nourished patient who is awake, alert, snw and in no acute distress. Head/Face: Normocephalic, atraumatic. Eyes: Pupils equal round and reactive to light, extra-ocular motions intact. Lids and lashes normal. Conjunctiva and sclera are non-icteric and not injected. Cornea within normal limits. Periorbital areas with no swelling, redness, or edema. ENT: Nares patent. No nasal discharge, no septal abnormalities noted. Tympanic membranes are normal and external auditory canals are clear. Oropharynx with no redness, swelling, or masses, exudates, or evidence of obstruction, uvula midline. Mucous membranes moist. Neck: Trachea midline, no thyromegaly or masses palpated, and no cervical lymphadenopathy. Supple, full range of motion without nuchal rigidity, or vertebral point tenderness. No Meningismus. Chest/axilla: Normal chest wall appearance and motion. Nontender with no deformity. No lesions are appreciated. Cardiovascular: Regular rate and rhythm with a normal S1 and S2. No gallops, murmurs, or rubs. Normal PMI, no JVD. No pulse deficits. Respiratory: Lungs have equal breath sounds bilaterally, clear to auscultation and percussion. No rales, rhonchi or wheezes noted. No increased work of breathing, no retractions or nasal flaring. Abdomen/GI: Soft, non-tender, with normal bowel sounds. No distension or tympany. No guarding or rebound. No evidence of tenderness throughout. Back: No spinal tenderness. No costovertebral tenderness. Full range of motion. MS/ Extremity: Pulses equal, no cyanosis. Neurovascular intact. Full, normal range of motion. Neuro: Awake and alert, GCS 15, oriented to person, place, time, and situation. Cranial nerves II-XII grossly intact. Motor strength 5/5 in all extremities. Sensory grossly intact. Cerebellar exam normal. Normal gait. Psych: Awake, alert, with orientation to person, place and time. Behavior, mood, and affect are within normal limits. 16:36 Skin: Appearance: normal except for affected area, cellulitis, that is mild, that is moderate, well demarcated, on the right bicep. Vital Signs: 16:23 BP 164 / 103; Pulse 72; Resp 16; Temp 98.8; Pulse Ox 98% on R/A; Weight 102.06 kg; iw Height 6 ft. 1 in. (185.42 cm); 16:23 Body Mass Index 29.68 (102.06 kg, 185.42 cm) iw MDM: 16:21 Patient medically screened. snw 16:26 Data reviewed: vital signs, nurses notes. Data interpreted: Pulse oximetry: on is 98 %. snw Interpretation: normal. Counseling: I had a detailed discussion with the patient and/or guardian regarding: the historical points, exam findings, and any diagnostic results supporting the discharge/admit diagnosis, the presence of at least one elevated blood pressure reading (>120/80) during this emergency department visit, the need for outpatient follow up, to return to the emergency department if symptoms worsen or persist or if there are any questions or concerns that arise at home. Special discussion: I have referred the patient to see his PCP for further evaluation of high blood pressure. I discussed in detail with the patient the higher chance of wound infection based on his presenting history. Based on the history and exam findings, there is no indication for further emergent testing or inpatient evaluation. I discussed with the patient/guardian the need to see the primary care provider for further evaluation of the symptoms. Administered Medications: 16:40 Drug: Clindamycin 300 mg Route: PO; ph 16:45 Follow up: Response: No adverse reaction ph 16:40 Drug: ZyrTEC - Cetirizine 10 mg Route: PO; ph 16:45 Follow up: Response: No adverse reaction ph 16:40 Drug: Tetanus-Diphtheria Toxoid Adult 0.5 ml {Geometry Professor: [employer]. Exp: ph 10/26/2021. Lot #: [id number]. } Route: IM; Site: right deltoid; 16:45 Follow up: Response: No adverse reaction ph Disposition: 17:24 Co-signature as Attending Physician, Sonu Dutta MD. rn Disposition: 11/29/19 16:23 Discharged to Home. Impression: Insect bite (nonvenomous) of right upper arm, Cellulitis of right upper limb. - Condition is Stable. - Discharge Instructions: Insect Bite, Cellulitis, Adult, Hypertension, VIS, Tetanus, Diphtheria (Td) - CDC, Cryotherapy. - Prescriptions for Clindamycin HCl 300 mg Oral Capsule - take 1 capsule by ORAL route every 8 hours for 10 days; 30 capsule. Zyrtec 10 mg Oral Tablet - take 1 tablet by ORAL route once daily As needed; 20 tablet. - Medication Reconciliation Form, Thank You Letter, Antibiotic Education, Prescription Opioid Use form. - Follow up: Private Physician; When: 2 - 3 days; Reason: Recheck today's complaints, Continuance of care, Re-evaluation by your physician. Follow up: Emergency Department; When: As needed; Reason: Worsening of condition. Signatures: Lenore Guerrier, MICROBIAL SPECIALIST-C MICROBIAL SPECIALIST-Csnw Lisa Garcia RN RN iw Sonu Dutta MD MD rn Hall, Patricia, RN RN ph Corrections: (The following items were deleted from the chart) 16:24 16:23 11/29/2019 16:23 Discharged to Home. Impression: Insect bite (nonvenomous) of snw right upper arm. Condition is Stable. Forms are Medication Reconciliation Form, Thank You Letter, Antibiotic Education, Prescription Opioid Use. Follow up: Private Physician; When: 2 - 3 days; Reason: Recheck today's complaints, Continuance of care, Re-evaluation by your physician. Follow up: Emergency Department; When: As needed; Reason: Worsening of condition. snw 16:52 16:24 11/29/2019 16:23 Discharged to Home. Impression: Insect bite (nonvenomous) of ph right upper arm; Cellulitis of right upper limb. Condition is Stable. Forms are Medication Reconciliation Form, Thank You Letter, Antibiotic Education, Prescription Opioid Use. Follow up: Private Physician; When: 2 - 3 days; Reason: Recheck today's complaints, Continuance of care, Re-evaluation by your physician. Follow up: Emergency Department; When: As needed; Reason: Worsening of condition. snw
[2019-11-29] MEDS ORDERED: CETIRIZINE HCL 5 MG TABLET ONE (16:38)
[2019-11-29] MEDS ORDERED: TETANUS & DIPHTHERIA TOX,ADULT 0.5 ML VIAL ONE (16:42)
[2019-11-29 17:00] VITALS: BP 164/103; TEMP 98.8; O2SAT 98
== END 2019-11-29 16:52 | disposition home or self-care (01) ==
LOC: ER 16:08
DX: S40.861A Insect bite (nonvenomous) of right upper arm, initial encounter (principal); L03.113 Cellulitis of right upper limb
CPT/HCPCS: 90471; 90714; 99283

== ENCOUNTER 2020-10-20 17:10 | Emergency (ER) | payer OTHER ==
[2020-10-20] MEDS ORDERED: BUPIVACAINE 0.5% PF 10 ML VIAL ONE (18:28)
[2020-10-20] MEDS ORDERED: TETANUS & DIPHTHERIA TOX,ADULT 0.5 ML VIAL ONE (18:28)
--- NOTE | 2020-10-20 18:39 | RAD REPORT ---
EXAM DESCRIPTION: RAD - Hand Right 3 View - 10/20/2020 6:31 pm CLINICAL HISTORY: injury Pain and swelling. COMPARISON: <Comparisons> FINDINGS: Second digit soft tissue laceration is noted. Slight bony avulsion injury suspected involv ing the middle phalanx distally of the second finger adjacent to the laceration site. No radiopaque f oreign body.
--- NOTE | 2020-10-20 19:24 | EDPHYS ---
Physician Documentation [facility] Name: Reinaldo Pickett Age: 70 yrs Sex: Male : 1950 Arrival Date: 10/20/2020 Time: 17:15 Bed 3 Private MD: ED Physician Sonu Dutta HPI: 10/20 18:09 This 70 yrs old Male presents to ER via Ambulatory with complaints of jmm Laceration To Hand. 18:09 The patient or guardian reports injury. Onset: The symptoms/episode began/occurred jmm acutely. Modifying factors: The symptoms are alleviated by nothing, the symptoms are aggravated by nothing. This is a 70 year old male with a history of kidney stones that presents to the ED with complaints of right 2nd finger laceration after accidently cutting it against a hole saw. Patient is not UTD on tetanus immunization. . Historical: - Allergies: 17:52 No Known Allergies; ca1 - Home Meds: 17:52 None [Active]; ca1 - PMHx: 17:52 Kidney stones; ca1 - PSHx: 17:52 Cholecystectomy; Knee surgery; shoulder surgery; ca1 - Immunization history:: Adult Immunizations not up to date, Last tetanus immunization: unknown, Pneumococcal vaccine status is unknown, Flu vaccine status is unknown. - Social history:: Smoking status: Patient denies any tobacco usage or history of. ROS: 18:09 Constitutional: Negative for fever, chills, and weight loss, Cardiovascular: Negative jmm for chest pain, palpitations, and edema, Respiratory: Negative for shortness of breath, cough, wheezing, and pleuritic chest pain. 18:09 MS/extremity: Positive for injury or acute deformity, laceration. 18:09 All other systems are negative. Exam: 18:09 Constitutional: This is a well developed, well nourished patient who is awake, alert, jmm and in no acute distress. Head/Face: atraumatic. Eyes: EOMI, no conjunctival erythema appreciated ENT: Moist Mucus Membranes Neck: Trachea midline, Supple Chest/axilla: Normal chest wall appearance and motion. Cardiovascular: Regular rate and rhythm. No edema appreciated Respiratory: Normal respirations, no respiratory distress appreciated Abdomen/GI: Non distended, soft Back: Normal ROM 18:09 Musculoskeletal/extremity: FROM noted to the right 2nd finger at pip and dip, < 2 sec dist cap refill, NVI. 18:09 Skin: 2 cm laceration noted to the lateral right 2nd finger. 18:09 Neuro: Orientation: is normal, Mentation: is normal, Memory: is normal. 18:09 Psych: Behavior/mood is pleasant, cooperative. Vital Signs: 17:49 BP 157 / 87; Pulse 78; Resp 16 S; Temp 97.8(TE); Pulse Ox 97% on R/A; Weight 102.06 kg ca1 (R); Height 6 ft. 1 in. (185.42 cm) (R); Pain 2/10; 17:49 Body Mass Index 29.68 (102.06 kg, 185.42 cm) ca1 Laceration: 19:18 Wound Repair of 2cm ( 0.8in ) subcutaneous laceration to right index finger. Distal jmm neuro/vascular/tendon intact. Anesthesia: Digital block administered with 4 mls of 0.5% marcaine. Wound prep: Moderate cleansing with betadine by me. Skin closed with 4 4-0 Prolene using simple sutures and sterile technique. Patient tolerated well. MDM: 18:04 Patient medically screened. [facility] 19:18 Data reviewed: vital signs, nurses notes. Counseling: I had a detailed discussion with socorro the patient and/or guardian regarding: the historical points, exam findings, and any diagnostic results supporting the discharge/admit diagnosis, radiology results, the need for outpatient follow up, to return to the emergency department if symptoms worsen or persist or if there are any questions or concerns that arise at home. ED course: Patient given wound infection return precautions. Patient understood and agrees with the plan of care. . 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 Exp: jd3 01/25/2022. Lot #: [id number]. } Route: IM; Site: right deltoid; 19:13 Follow up: Response: No adverse reaction jd3 18:18 Drug: Marcaine (0.5 %) 10 ml Volume: 10 ml; Route: Infiltration; jd3 19:13 Follow up: Response: No adverse reaction jd3 Disposition: 10/20/20 19:24 Discharged to Home. Impression: Finger Laceration. - Condition is Stable. - Discharge Instructions: Laceration Care, Adult. - Prescriptions for Bactrim DS 800- 160 mg Oral Tablet - take 1 tablet by ORAL route every 12 hours for 10 days; 20 tablet. - Medication Reconciliation Form, Thank You Letter, Antibiotic Education, Prescription Opioid Use form. - Follow up: Private Physician; When: 7 - 10 days; Reason: Recheck today's complaints, Continuance of care, Staple/Suture removal, Re-evaluation by your physician. Addendum: 10/23/2020 07:12 Co-signature as Attending Physician, Sonu Dutta MD. r n Signatures: Dispatcher [employer] EDMS Josiah Lam PA PA jmm Nieto, Roman, MD MD rn Antunez, Elena RN RN Alberto Perez RN RN jiTki Rivas RN RN ca1 Corrections: (The following items were deleted from the chart) 10/20 19:38 19:24 10/20/2020 19:24 Discharged to Home. Impression: Finger Laceration. Condition is ea Stable. Forms are Medication Reconciliation Form, Thank You Letter, Antibiotic Education, Prescription Opioid Use. Follow up: Private Physician; When: 7 - 10 days; Reason: Recheck today's complaints, Continuance of care, Staple/Suture removal, Re-evaluation by your physician. socorro
--- NOTE | 2020-10-20 19:24 | ER ---
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 Coronavirus screen: Client denies travel out of the [place] in the last 14 days. At this time, the client does not indicate any symptoms associated with coronavirus-19. Ebola Screen: Patient negative for fever greater than or equal to 101.5 degrees Fahrenheit, and additional compatible Ebola Virus Disease symptoms Patient denies exposure to infectious person. Patient denies travel to an Ebola-affected area in the 21 days before illness onset. No symptoms or risks identified at this time. Complicating Factors: There are no complicating factors for this patient. Initial Sepsis Screen: Does the patient meet any 2 criteria? No. Patient's initial sepsis screen is negative. Does the patient have a suspected source of infection? No. Patient's initial sepsis screen is negative. Risk Assessment: Do you want to hurt yourself or someone else? Patient reports no desire to harm self or others. Onset of symptoms was October 20, 2020. 17:49 Method Of Arrival: Ambulatory ca1 17:49 Acuity: ADRIENNE 4 ca1 Historical: - Allergies: 17:52 No Known Allergies; ca1 - Home Meds: 17:52 None [Active]; ca1 - PMHx: 17:52 Kidney stones; ca1 - PSHx: 17:52 Cholecystectomy; Knee surgery; shoulder surgery; ca1 - Immunization history:: Adult Immunizations not up to date, Last tetanus immunization: unknown, Pneumococcal vaccine status is unknown, Flu vaccine status is unknown. - Social history:: Smoking status: Patient denies any tobacco usage or history of. Screenin:26 Abuse screen: Denies threats or abuse. Nutritional screening: No deficits noted. jd3 Tuberculosis screening: No symptoms or risk factors identified. Fall Risk Ambulatory Aid- None/Bed Rest/Nurse Assist (0 pts). Gait- Normal/Bed Rest/Wheelchair (0 pts) Mental Status- Oriented to own ability (0 pts). Total Lopez Fall Scale indicates No Risk (0-24 pts). Assessment: 18:19 General: Appears in no apparent distress. comfortable, Behavior is calm, cooperative, jd3 appropriate for age. Pain: Complains of pain in right index finger Quality of pain is described as aching. Neuro: Level of Consciousness is awake, alert, obeys commands, Oriented to person, place, time, situation. Cardiovascular: Reports None Capillary refill < 3 seconds Patient's skin is warm and dry. Respiratory: Airway is patent Respiratory effort is even, unlabored, Respiratory pattern is regular, symmetrical, Denies cough, shortness of breath. GI: No signs and/or symptoms were reported involving the gastrointestinal system. : No signs and/or symptoms were reported regarding the genitourinary system. EENT: No signs and/or symptoms were reported regarding the EENT system. Derm: Skin is intact, Skin is dry, Skin is normal, Skin temperature is warm. Musculoskeletal: Circulation, motion, and sensation intact. Range of motion: intact in all extremities. Injury Description: Laceration sustained to right index finger is 0.5 to 2.5 cm long, bleeding stopped with pressure. 19:12 Reassessment: Patient appears in no apparent distress at this time. Patient and/or jd3 family updated on plan of care and expected duration. Pain level reassessed. Patient is alert, oriented x 3, equal unlabored respirations, skin warm/dry/pink. provider at beside suturing. 19:37 Reassessment: Patient and/or family updated on plan of care and expected duration. Pain ea level reassessed. Patient is alert, oriented x 3, equal unlabored respirations, skin warm/dry/pink. Discharge instruction given to patient, verbalized the understanding of instruction. Vital Signs: 17:49 BP 157 / 87; Pulse 78; Resp 16 S; Temp 97.8(TE); Pulse Ox 97% on R/A; Weight 102.06 kg ca1 (R); Height 6 ft. 1 in. (185.42 cm) (R); Pain 2/10; 17:49 Body Mass Index 29.68 (102.06 kg, 185.42 cm) ca1 ED Course: 17:15 Patient arrived in ED. ag5 17:45 Alberto Moreland, NIKOLAY is Primary Nurse. jd3 17:51 Triage completed. ca1 17:52 Arm band placed on right wrist. ca1 18:01 Josiah Lam PA is PHCP. socorro 18:02 Sonu Dutta MD is Attending Physician. jmm 18:28 Patient has correct armband on for positive identification. Bed in low position. Call jd3 light in reach. Side rails up X 1. Pulse ox on. NIBP on. 18:31 Hand Right 3 View XRAY In Process Unspecified. EDMS 19:13 Assist provider with laceration repair on right index finger that was 2.5 cm. or less jd3 using sutures. Set up tray. Performed by Josiah GAMEZ Patient tolerated well. 19:37 Patient did not have IV access during this emergency room visit. 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 Exp: jd3 01/25/2022. Lot #: [id number]. } Route: IM; Site: right deltoid; 19:13 Follow up: Response: No adverse reaction jd3 18:18 Drug: Marcaine (0.5 %) 10 ml Volume: 10 ml; Route: Infiltration; jd3 19:13 Follow up: Response: No adverse reaction jd3 Outcome: 19:24 Discharge ordered by MD. [facility] 19:37 Discharged to home ambulatory. ea 19:37 Condition: stable 19:37 Discharge instructions given to patient, Instructed on discharge instructions, follow up and referral plans. medication usage, Demonstrated understanding of instructions, follow-up care, medications, Prescriptions given X 1. 19:38 Patient left the ED. ea Signatures: Dispatcher [employer] EDMS Josiah Lam PA PA jmm Antunez, Elena RN Alberto Caceres ea, RN RN jTiki Rivas RN RN ca1 [facility]
[2020-10-20 19:45] VITALS: BP 157/87; TEMP 97.8; O2SAT 97
== END 2020-10-20 19:38 | disposition home or self-care (01) ==
LOC: ER 17:10
PROC: 0JQJ0ZZ Repair Right Hand Subcutaneous Tissue and Fascia, Open Approach (ICD-10-PCS; principal; 2020-10-20)
DX: S61.210A Laceration without foreign body of right index finger without damage to nail, initial encounter (principal); W29.8XXA Contact with other powered hand tools and household machinery, initial encounter; Y93.9 Activity, unspecified; Y92.9 Unspecified place or not applicable; Z23 Encounter for immunization
CPT/HCPCS: 90471; 90714; 99284

== ENCOUNTER 2023-11-23 05:23 | Observation (INO) | payer MEDICARE, OTHER ==
--- NOTE | 2023-11-18 09:44 | RAD REPORT ---
EXAM DESCRIPTION: RAD - Chest Pa And Lat (2 Views) - 11/18/2023 9:36 am CLINICAL HISTORY: Pre op pending knee arthroplasty COMPARISON: Abdomen 1 View (KUB) dated 04/18/2018; Abdomen 1 View (KUB) dated 04/12/2018; Abdomen 1 View (KUB) dated 03/31/2018; Abdomen 1 View (KUB) dated 03/29/2018 FINDINGS: Lines: None. Lungs: No evidence of edema or pneumonia. Pleural: No significant pleural effusions or pneumothorax. Cardiac: The heart size is within normal limits. Mediastinum: Within normal limits. Bones: No acute fractures. Remote left-sided rib fractures. Other: None IMPRESSION: No acute cardiopulmonary disease.
[2023-11-18 09:45] LABS: Absolute Lymphocytes (CBC) 1.3 K/uL (0.7-4.9); Hematocrit 38.8 % (39.6-49.0); Lymphocytes % 21.5 % (15.3-44.8); MCV 93.2 fL (80-100); MPV 7.6 fL (7.6-11.3); Platelets 285 thou/uL (152-406); RBC Red Blood Cell Count 4.17 M/uL (4.33-5.43)
[2023-11-18 09:48] LABS: Specific Gravity 1.014 (1.005-1.030); Urine Bacteria None Seen /HPF (<20); Urine Bilirubin NEGATIVE (Negative); Urine Blood Negative (Negative); Urine Clarity Extremely Turbid (Clear); Urine Color Light-Yellow (Yellow); Urine Glucose NEGATIVE (Negative); Urine Mucus Slight /HPF (None Seen); Urine Protein NEGATIVE (Negative); Urine RBC None Seen /HPF (None Seen); Urine Urobilinogen Normal (Normal); Urine pH 7.5 (5.0-7.0)
[2023-11-18 10:04] LABS: Protime INR 1.05
[2023-11-18 10:05] LABS: Albumin 3.7 g/dL (3.4-5.0); Bilirubin Total 0.6 mg/dL (0.2-1.0); Protein, Total 6.7 g/dL (6.4-8.2)
[2023-11-18 10:23] LABS: Blood Morphology Comment NOT SEEN (NOT SEEN); Platelet Estimate ADEQ
--- NOTE | 2023-11-18 13:21 | EKG ---
Test Date: 2023-11-18 Test Time: 10:21:04 Semiconductor Manufacturing Technician: ALBERTA MEASUREMENT RESULTS: Intervals: Rate: 57 ME: 266 QRSD: 80 QT: 432 QTc: 420 [place]: P: 57 ME: 266 QRS: 60 T: 59 INTERPRETIVE STATEMENTS: Sinus bradycardia with 1st degree AV block Otherwise normal ECG Compared to ECG 03/29/2018 09:46:03 Sinus rhythm no longer present Electronically Signed On 11-18-23 13:21:04 TECHNOLOGY ENGINEER by Hammad Monzon
[2023-11-23] MEDS: CELECOXIB 100 MG CAPSULE ONE (05:50)
[2023-11-23] MEDS: Ringers Lactate 1,000 ML IV ONE (05:50)
[2023-11-23] MEDS: Oxycodone HCl/Acetaminophen 5/325 MG TAB ONE (05:50)
[2023-11-23] MEDS: GABAPENTIN 100 MG CAP ONE (05:50)
[2023-11-23] MEDS: ACETAMINOPHEN 500 MG TAB ONE (05:50)
[2023-11-23] MEDS: dexAMETHasone 10 MG/ML VIAL ONE (06:14)
[2023-11-23] MEDS: LIDOCAINE 1% MPF 5 ML VIAL ONE (06:14)
[2023-11-23] MEDS: EPINEPHRINE 1 MG/ML VIAL ONE (06:15)
[2023-11-23] MEDS: FENTANYL CITR 100 MCG/2 ML ONE (06:15)
[2023-11-23] MEDS: MIDAZOLAM HCL 2 MG/2 ML INJ ONE (06:16)
[2023-11-23] MEDS: MAGNESIUM SULFATE 1 gm IVPB 1 GM/100 ML BAG IV ONE (06:16)
[2023-11-23] MEDS: BUPIVACAINE 0.25% PF 30 ML VIAL ONE (06:16)
[2023-11-23] MEDS: DEXMEDETOMIDINE HCL 200 MCG/2 ML VIAL ONE (06:16)
[2023-11-23] MEDS ORDERED: propofoL 200 MG/20 ML VIAL IV ONE (06:56)
[2023-11-23] MEDS ORDERED: EPHEDRINE SULF 50 MG/ML VIAL ONE (07:13)
[2023-11-23] MEDS: CEFAZOLIN SODIUM 2 GM/VIAL ONE (07:20)
[2023-11-23] MEDS ORDERED: ONDANSETRON 4 MG/2 ML VIAL ONE (07:22)
[2023-11-23] MEDS ORDERED: LIDOCAINE 2% MPF 5 ML VIAL ONE (07:22)
[2023-11-23] MEDS ORDERED: KETAMINE HCL IN 0.9 % NACL 50 MG/5 ML SYRINGE IV ONE (07:22)
[2023-11-23] MEDS: TRANEXAMIC ACID 1,000 MG/10 ML VIAL IV ONE (07:28)
[2023-11-23] MEDS ORDERED: ONDANSETRON 4 MG/2 ML VIAL IV PRN (09:42)
[2023-11-23] MEDS ORDERED: DOCUSATE NA 100 MG CAP PO PRN (09:42)
--- NOTE | 2023-11-23 09:42 | P.BOP ---
Preoperative diagnosis: left knee arthritis Postoperative diagnosis: same Primary procedure: left total knee arthoplasty Estimated blood loss: 50ccs Anesthesia: General Complications: None Transferred to: Recovery Room Condition: Good
--- OUTSIDE RECORDS SUMMARY | 2023-11-23 10:34 | XMS REPORT | Continuity of Care Document ---
Author Name Unknown Address [address] [facility] [address] [place] [address] [facility] thconnect Address [address] [facility] [address] [place] [address] Care Team Providers Care [facility] Business Development Manager Name Role Phone PCP, PATIENT DOES NOT HAVE A Primary Care Physic Chemo Contreras MD Attending Clinician [phone] CHEMO BERNARD Attending Clinician Unavaildanny e Doctor Unassigned, Ismay Attending Clinician U navailable Payers Payer Name Policy Type Policy Number Effective Date Expirati on Date Source [facility]LY [facility] (MEDICARE REPLACEMENT O) [id number] 2023 00:00:00 Problems Condition Name Condition Details Condition Category Status Onset Date Resolution Date Last Treatment Date Treating Clinician Comments Source Right leg pain Right leg pain Disease Active 2015-10 00:00: 00 [facility] Allergies, Adverse Reactions, Alerts Allergy Name Allergy Type Status Severity Reaction(s) Onset Date Inactive Date Treating Clinician Comments Source NO KNOWN ALLERGIE S Drug Class Active [facility] Social History Social Habit Start Date Stop Date Quantity Comments Source Exposure to SARS-CoV-2 (event) 2022-07-14 00:00:00 2022-07-24 10:41:00 Not sure [facility] Tobacco use and exposure 2022-07-24 00:00:00 2022-07-24 00:00:00 Smokeless tobacco non-user [facility] Alcohol intake 2022-07-24 00:00:00 2022-07-24 00:00:00 0 /d [facility] Sex Assigned At 1950 00:00:00 1950 00:00:00 [facility] Smoking Status Start Date Stop Date Source Never smoked tobacco [facility] Medications Ordered Medication Name Filled Medication Name Start Date Stop Date Current Medication? Ordering Clinician Indication Dosage Frequency Signature (SIG) Comments Components Source No known medications 2021-10 11:02: 09 No No known medication s [facility] No known medications 2021-10 11:02: 09 No No known medication s [facility] No known medications 2015-10 08:24: 07 No No known medication [facility] Vital Signs Vital Name Observation Time Observation Value Comments S sadaf Systolic blood pressure 2022-07-24 16:00:00 179 mm[Hg] [facility] Diastolic blood pressure 2022-07-24 16:00:00 98 mm[Hg] [facility] Heart rate 2022-07-24 16:00:00 83 /min [facility] Oxygen saturation in Arterial blood by Pulse oximetry 2022-07-24 16:00:00 98 /min [facility] Body height 2022-07-24 15:59:00 185.4 cm [facility] Body weight 2022-07-24 15:59:00 101.878 kg [facility] BMI 2022-07-24 15:59:00 29.63 kg/m2 [facility] Procedures Procedure Date / Time Performed Performing Clinicia n Source ASSIGNMENT OF BENEFITS 2022-07-24 15:42:42 Docto r Unassigned, Ismay [facility] Encounters Start Date/Time End Date/Time Encounter Type Admission Type Attending Clinicians Care Facility Care Department Encounter ID Source 2023-08-01 00:00:00 2023-08-01 00:00:00 Outpatient [facility] [id number] [facility] 2022-07-24 11:00:00 2022-07-24 12:07:56 Office Visit Chemo Bernard [facility] [id number] [facility] 2022-07-24 11:00:00 2022-07-24 12:07:56 Outpatient R CHEMO BERNARD [facility] [id number] [facility] 2022-07-24 00:00:00 2022-07-24 00:00:00 Orders Only Doctor Unassigned, Ismay [facility] [id number]..[id number] [facility]
[2023-11-23] MEDS: HYDROMORPHONE HCL 1 MG/ML INJ ONE (10:35)
[2023-11-23 10:53] VITALS: O2SAT 99
[2023-11-23 11:15] VITALS: BMI 28.5
[2023-11-23] MEDS: INFLUENZA VACCINE (for 6+ mo) 0.5 ML DOSE IMVAC ONE (11:32)
--- NOTE | 2023-11-23 12:16 | OP ---
Date of Procedure: 11/23/2023 Surgeon: Ron Ryder MD Preoperative Diagnosis: Severe left knee osteoarthritis. Postoperative Diagnosis: Severe left knee osteoarthritis. Procedure: Left total knee arthroplasty using Biomet Vanguard system. Estimated Blood Loss: 50 cc. Complications: There were no complications. Specimens: No pathology specimens sent other than fragments of the knee. Indication For Operation: The patient is a 73-year-old gentleman who has had trouble with his left k nee for quite some time. He was seen and examined in my office and said that he did not want to purs ue any further conservative management, that his knee was killing him, and that he desired total knee arthroplasty. X-rays demonstrated [id number] changes and he does not fully extend his knee, lacki ng a few degrees from full extension. Risks, benefits, and alternatives of different methods of sienna ting this were again discussed. He states he understands things as presented and risks associated wi th total knee arthroplasty have been discussed in detail. He states he understands things as present ed, wished to proceed. Description Of Procedure: The patient was taken to the operating room and placed in supine position. General anesthesia was obtained by the anesthesia staff. He had previously gotten a block in the [facility] area. After this, a well-padded tourniquet was placed on the superior left thigh. Left lower extremity was then prepped and draped in the usual fashion for procedure. After this, the leg was t hen elevated and gently exsanguinated using an Grant wrap. The tourniquet was raised. A standard ante rior incision was taken down carefully through skin and soft tissues. Meticulous hemostasis being ma intained using Bovie electrocautery. This leads to appropriate level, which was then reflected back giving good visualization of the extensor mechanism. After this, a standard medial parapatellar arth rotomy was performed with liberation of approximately 30 cc of rather normal-appearing synovial fluid . This revealed the knee, which demonstrates essentially no cartilage in the lateral compartment, hi gh-grade chondral changes of both the patellofemoral and medial compartment. The medial and lateral menisci as well as the ACL are resected and the intramedullary alignment guide was placed without dif ficulty. After this, distal cut was made. It was sized to a size 75. The remainder of the femoral cuts were then performed with the exception of the box. Attention was then turned to the tibia and t he tibia was then cut. It was then trialed with trial tibia with a 10 poly, does not really come to extension comfortably, but appears to be balanced based on the cut. Decision made to cut 4 more mill imeters of tibia, which now comes to full flexion, full extension, feels good, and is balanced. Afte r this, attention was then turned to the patella. Patella was then calipered and cut and trial thorne la was placed. It was brought through range of motion with the trials and found to glide appropriate ly. After this, the tibia was punched and the box was cut. The surfaces were then prepped for cemen tation. All of the final components with the exception of the polyethylene were then cemented into p lace. A trial polyethylene was placed and the cement was allowed to harden. After this, brought thr ough full range of motion, was found to glide appropriately, and be stable and symmetric gapping. Th e wound was then copiously irrigated and the final polyethylene was placed using locking bar. The kn ee was then copiously irrigated with jet lavage and the extensor mechanism was repaired using heavy E thibond sutures. It was again irrigated. The skin was closed using Vicryl sutures followed by stapl es. The patient was placed in a well-padded sterile dressing, awakened, taken to recovery room. The re were no complications. SE/MODL Voice ID: [id number] Report ID: [id number]
--- NOTE | 2023-11-23 14:30 | P.CNS ---
Date of Consult: 11/23/23 Reason for Consult: Medical management Requesting Physician: Ron Ryder Chief Complaint: Left knee pain History of Present Illness: Patient was admitted to the hospital after having a elective left total knee replacement. After induction for general anesthesia patient was noted to have a 4-second sinus pause, no further action was taken and patient reverted to sinus rhythm. Hospital service was consulted for assistance with medical management. Allergies No Known Allergies Allergy (Verified 11/18/23 09:08) Home Medications: NK [No Home Meds] 11/18/23 - Past Medical/Surgical History Diabetic: No -: None -: Left knee replacement Psychosocial/ Personal History: Lives at home with his - Family History Father Medical History: Hypertension Mother Medical History: Hypertension - Social History Smoking Status: Never smoker Alcohol use: Yes CD- Drugs: No Caffeine use: Yes Place of Residence: Home Review of Systems 10-point ROS is otherwise unremarkable Musculoskeletal: Other (Left knee pain) Physical Examination Temp Pulse Resp BP Pulse Ox 97.0 F 65 16 100/58 L 11/23/23 10:17 11/23/23 10:27 11/23/23 10:39 11/23/23 10:27 General: Alert, In no apparent distress, Oriented x3 HEENT: Atraumatic, PERRLA, Mucous membr. moist/pink Neck: Supple, 2+ carotid pulse no bruit, No LAD Respiratory: Clear to auscultation bilaterally, Normal air movement Cardiovascular: Regular rate/rhythm, Normal S1 S2 Gastrointestinal: Normal bowel sounds, No tenderness Musculoskeletal: No tenderness Integumentary: No rashes Neurological: Normal speech, Normal tone, Normal affect Conclusions/Impression: Assessment: Left knee arthritis status post left total knee replacement 11/23/2023 4-second sinus pause Plan: Left knee arthritis status post left total knee replacement 11/23/2023 Management per orthopedic surgery 4-second sinus pause Happened after induction of general anesthesia No intervention was necessary, currently normal sinus rhythm Will monitor on telemetry overnight for further episodes DVT PPX: Per Ortho surgery Code status: Full Dispo 24 to 48 hours-plan on home with home health Critical Care: No Time Spent Managing Pts care (In Minutes): 30
[2023-11-23] MEDS: CEFAZOLIN 1 GM in NA CHLORIDE 0.9% 50 ML IVPB SCH (16:56)
[2023-11-23] MEDS: HYDROCODONE/APAP 7.5/325 MG TAB PO PRN (21:08)
[2023-11-24] MEDS: MELATONIN 5 MG TABLET PO PRN (01:42)
[2023-11-24] MEDS: ENOXAPARIN 30 MG/0.3 ML SQ SCH (05:28)
[2023-11-24 08:21] VITALS: BP 116/62; TEMP 98.2
--- NOTE | 2023-11-24 10:27 | P.PN ---
Date of Service: 11/24/23 Subjective: No acute events overnight No further episodes of sinus pauses on telemetry Ambulatory with walker ROS: 10 point ROS as noted above, otherwise negative Physical exam GEN: Alert, oriented, NAD HEENT: Normal conjunctiva, sclera anicteric CV: Regular rate and rhythm, no edema Pulm: Nonlabored respirations on room air ABD: Soft, nontender, nondistended MSK: No joint tenderness Integumentary: No rashes Neuro: Normal speech, normal affect Vitals reviewed Problem List Left knee arthritis status post left total knee replacement 11/23/2023 Management per orthopedic surgery 4-second sinus pause Monitored on telemetry overnight No further episodes Likely related to the induction/anesthesia Recommend follow-up with PCP/cardiology outpatient DVT PPX: Per Ortho surgery Code status: Full Dispo-today with home health Time Spent Managing Pts Care (In Minutes): 25
== END 2023-11-24 10:36 | disposition home health service (06) ==
LOC: OR 05:23 → 2ND 10:31
PROVIDERS: ADMIT Orthopaedic Surgery; ATTEND Orthopaedic Surgery
PROC: 0SRD069 Replacement of Left Knee Joint with Oxidized Zirconium on Polyethylene Synthetic Substitute, Cemented, Open Approach (ICD-10-PCS; principal; 2023-11-23 07:00)
DX: M17.12 Unilateral primary osteoarthritis, left knee (principal); I97.191 Other postprocedural cardiac functional disturbances following other surgery; I44.0 Atrioventricular block, first degree
CPT/HCPCS: 93005; 85025; 81001; 36415 ×2; 85610; 88305; 88311; 85730; 85018; 85014; 80053; 71046; 97110 ×3; 97116 ×2; 97139; 97161; 97530; 94010 ×2; 27447; J3475; J2704; J2001 ×2; J1650; J2250; J3010; J1100; J0171; J1170; J2405; J7120; J0690 ×3; C1776